=== PATIENT | female | born 1950 | race Caucasian/White ===

== ENCOUNTER 2016-11-25 05:50 | Inpatient (IN) | payer OTHER ==
[2016-11-16 14:07] VITALS: BMI 33.3
[2016-11-25] MEDS ORDERED: PANTOPRAZOLE 40 MG TABLET (FP) PO ONE (06:34)
[2016-11-25] MEDS ORDERED: ROPIVICAINE 0.2%/MORPH PF/KETOROLAC - 51ML DISP.SYRINGE IA ONE ×2 (06:40→07:42)
[2016-11-25] MEDS ORDERED: GABAPENTIN 300 MG CAPSULE (FP) PO ONE (06:40)
[2016-11-25] MEDS ORDERED: TRANEXAMIC ACID 1000 MG/10 ML VIAL IVPUSH ONE (06:40)
[2016-11-25] MEDS ORDERED: CEFAZOLIN 2 GM in DEXTROSE 5%-WATER - 50 ML IVPB ONE (06:40)
[2016-11-25] MEDS ORDERED: oxyCODONE HCL 10 MG SUSTAINED ACTING TABLET PO ONE (06:40)
[2016-11-25] MEDS ORDERED: CELECOXIB 200 MG CAPSULE PO ONE (06:40)
[2016-11-25] MEDS ORDERED: MIDAZOLAM HCL 2 MG/2 ML SINGLE DOSE VIAL ONE (07:17)
[2016-11-25] MEDS ORDERED: BUPIVACAINE HCL/PF 2.5 MG/ML - 30 ML VIAL IJ ONE (07:18)
[2016-11-25] MEDS ORDERED: TRANEXAMIC ACID 1000 MG/10 ML VIAL ONE ×2 (07:42→07:55)
[2016-11-25] MEDS ORDERED: VANCOMYCIN 1,000 MG VIAL (RESTRICTED TO ID ONLY) ONE (07:42)
[2016-11-25] MEDS ORDERED: ceFAZolin SODIUM 1 GM VIAL ONE ×2 (07:42→07:55)
[2016-11-25] MEDS ORDERED: BUPIVACAINE HCL/PF 0.5% (5MG/ML) 10 ML VIAL ONE (07:52)
[2016-11-25] MEDS ORDERED: PROPOFOL 20 ML ONE ×3 (07:54)
[2016-11-25] MEDS ORDERED: ONDANSETRON 4 MG/2 ML VIAL ONE (07:55)
[2016-11-25] MEDS ORDERED: DEXAMETHASONE SOD PHOSPHATE 4 MG/1 ML VIAL ONE (07:55)
[2016-11-25] MEDS ORDERED: SUCCINYLCHOLINE CHLORIDE 200 MG/10 ML VIAL ONE (07:58)
--- NOTE | 2016-11-25 08:10 | HP ---
Admitting History and Physical - Admission Chief Complaint: left knee OA History of Present Illness: 66yo female with longstanding bilateral knee OA, L>R, failed conservative management, here for TKA History Source: Patient, Medical Record Limitations to Obtaining History: No Limitations - Past Medical History Cardiovascular: Yes: HTN, Hyperlipdemia Musculoskeletal: Yes: Osteoarthritis - Past Surgical History Past Surgical History: Yes: Arthrosocopy - Smoking History Smoking history: Never smoked Have you smoked in the past 12 months: No - Alcohol/Substance Use Hx Alcohol Use: Yes (SOCIALLY) Home Medications - Allergies Allergies/Adverse Reactions: Allergies Allergy/AdvReac Type Severity Reaction Status Date / Time shellfish derived Allergy Severe Swelling Verified 11/16/16 13:59 No Known Drug Allergies Allergy Verified 11/16/16 13:59 - Home Medications Home Medications: Ambulatory Orders Amlodipine/Atorvastatin [Amlodipine-Atorvast 5-10 mg] 1 each PO HS 11/17/16 Pitavastatin Calcium [Livalo] 2 mg PO HS 11/17/16 Physical Examination Vital Signs: Vital Signs Temperature 98.3 F 11/25/16 06:33 Pulse Rate 58 L 11/25/16 06:33 Respiratory Rate 18 11/25/16 06:33 Blood Pressure 146/69 11/25/16 06:33 O2 Sat by Pulse Oximetry (%) Constitutional: Yes: Well Nourished, No Distress, Calm Eyes: Yes: WNL, Conjunctiva Clear HENT: Yes: WNL, Atraumatic, Normocephalic Neck: Yes: WNL, Supple Cardiovascular: Yes: WNL, Regular Rate and Rhythm Respiratory: Yes: WNL, Regular Gastrointestinal: Yes: WNL, Soft ...Rectal Exam: Yes: Deferred Musculoskeletal: Yes: Joint Stiffness, Joint Swelling, Muscle Pain Extremities: Yes: WNL Edema: No Peripheral Pulses WNL: Yes Integumentary: Yes: WNL Neurological: Yes: WNL, Alert, Oriented ...Motor Strength: WNL Psychiatric: Yes: WNL, Alert, Oriented Labs: reviewed in chart - OK Imaging - Results X-ray: Image Reviewed Problem List - Problems (1) Osteoarthritis of left knee Code(s): M17.12 - UNILATERAL PRIMARY OSTEOARTHRITIS, LEFT KNEE Qualifiers: Osteoarthritis type: primary Qualified Code(s): M17.12 - Unilateral primary osteoarthritis, left knee Assessment/Plan 66yo female with left knee OA for TKA
[2016-11-25] MEDS ORDERED: ONDANSETRON 4 MG/2 ML VIAL IVPUSH PRN (11:05)
[2016-11-25] MEDS ORDERED: LACTATED RINGERS SOLUTION 1,000 ML IV SCH ×2 (11:15→11:45)
--- NOTE | 2016-11-25 11:40 | OP ---
Operative Note - Note: Operative Date: 11/25/16 Pre-Operative Diagnosis: left knee OA Operation: left TKA Post-Operative Diagnosis: Same as Pre-op Surgeon: John Hare Anesthesia: Spinal Estimated Blood Loss (mls): 100
[2016-11-25] MEDS ORDERED: ONDANSETRON 4 MG/2 ML VIAL IVPB PRN (11:41)
[2016-11-25] MEDS ORDERED: ACETAMINOPHEN 1000 MG/100 ML VIAL (NON FORMULARY) IVPB ONE (11:52)
--- NOTE | 2016-11-25 11:52 | SURG ---
Surgery Home Care Attendant Note Home Care Attendant: Dusty Marcum PA-C Date of Service: 11/25/16 Diagnosis: Left knee osteoarthritis Procedure: Left total knee replacement I was present for the entirety of the operative procedure. For further detail, please refer to operative report. Visit type - Case Type Case Type: Scheduled Admission - New patient This patient is new to me today: Yes Date on this admission: 11/25/16
[2016-11-25] MEDS: traMADol HCL 50 MG TABLET PO SCH ×2 (12:00→18:28)
[2016-11-25] MEDS: KETOROLAC TROMETHAMINE 30 MG/1 ML VIAL IVPUSH SCH ×2 (12:00→18:26)
[2016-11-25] MEDS ORDERED: MAG HYDROX/AL HYDROX/SIMETH 30 ML UNIT-DOSE CUP PO PRN (13:26)
[2016-11-25] MEDS: oxyCODONE HCL 5 MG TABLET PO PRN (15:04)
[2016-11-25] MEDS: ACETAMINOPHEN 325 MG TABLET (FP) PO SCH (18:27)
[2016-11-25] MEDS: CEFAZOLIN 2 GM/D5W 50 ML IVPB SCH (18:27)
[2016-11-25] MEDS ORDERED: PATIENT'S OWN MEDICATION (NON-FORMULARY) (Amlodipine/Atorvastatin [Amlodipine-Atorvast 5-1 PO SCH (22:00)
[2016-11-25] MEDS ORDERED: ATORVASTATIN CA 10 MG TABLET (FP) PO SCH (22:00)
[2016-11-25] MEDS ORDERED: amLODIPine BESYLATE 5 MG TABLET (FP) PO SCH (22:00)
[2016-11-25] MEDS: SENNOSIDES/DOCUSATE COMBO (SENNA PLUS) TABLET (UD) PO SCH (22:01)
[2016-11-25] MEDS: GABAPENTIN 300 MG CAPSULE (FP) PO SCH (22:02)
[2016-11-25] MEDS: oxyCODONE HCL 10 MG SUSTAINED ACTING TABLET PO SCH (22:03)
[2016-11-25] MEDS: CELECOXIB 200 MG CAPSULE PO SCH (22:03)
[2016-11-25] MEDS: ASCORBIC ACID 500 MG TABLET (FP) PO SCH (22:04)
[2016-11-26] MEDS: ACETAMINOPHEN 325 MG TABLET (FP) PO SCH ×4 (00:18→17:39)
[2016-11-26] MEDS: traMADol HCL 50 MG TABLET PO SCH ×4 (00:19→17:39)
[2016-11-26] MEDS: KETOROLAC TROMETHAMINE 30 MG/1 ML VIAL IVPUSH SCH ×2 (00:19→05:49)
[2016-11-26] MEDS: CEFAZOLIN 2 GM/D5W 50 ML IVPB SCH (02:17)
[2016-11-26 08:56] LABS: ANION GAP 7 (8-16); CO2 28 mmol/L (22-28); CREATININE 0.7 mg/dl (0.6-1.3); GLUCOSE,RANDOM 95 mg/dl (74-106)
[2016-11-26 09:05] LABS: MCH 31.5 pg (25.7-33.7); MCHC 33.9 g/dl (32.0-36.0); MEAN CELL VOLUME 92.9 fl (80-96); PLATELET COUNT 258 K/MM3 (134-434); RDW 13.8 % (11.6-15.6)
--- NOTE | 2016-11-26 09:05 | PN ---
Progress Note (short form) - Note Progress Note: 66F POD1 s/p L TKR under spinal anesthetic with adductor canal and selective tibial blocks for post operative pain. Pt is doing well, states that pain is well controlled, reports no anesthetic complications. Sensory and motor function is intact in both lower extremities.
[2016-11-26] MEDS: ASPIRIN 325 MG TABLET PO SCH (10:13)
[2016-11-26] MEDS: GABAPENTIN 300 MG CAPSULE (FP) PO SCH ×2 (10:13→21:22)
[2016-11-26] MEDS: PANTOPRAZOLE 40 MG TABLET (FP) PO SCH (10:14)
[2016-11-26] MEDS: MULTIVITAMINS (DAILY MVI) TABLET (FP) PO SCH (10:14)
[2016-11-26] MEDS: ASCORBIC ACID 500 MG TABLET (FP) PO SCH ×2 (10:14→21:21)
[2016-11-26] MEDS: MAGNESIUM HYDROX 2400MG/30ML ORAL SUSPENSION 30 ML CUP PO PRN ×2 (10:15→15:35)
[2016-11-26] MEDS: SENNOSIDES/DOCUSATE COMBO (SENNA PLUS) TABLET (UD) PO SCH ×2 (10:15→21:20)
[2016-11-26] MEDS: CELECOXIB 200 MG CAPSULE PO SCH ×2 (10:15→21:22)
[2016-11-26] MEDS: oxyCODONE HCL 10 MG SUSTAINED ACTING TABLET PO SCH ×2 (10:16→21:21)
[2016-11-26] MEDS: oxyCODONE HCL 5 MG TABLET PO PRN ×2 (15:31→21:21)
[2016-11-26] MEDS ORDERED: PT OWN MED DRAWER 7, Y5N ONE (21:12)
--- NOTE | 2016-11-26 21:12 | PN ---
Progress Note (short form) - Note Progress Note: Pt seen and examined. Doing well. AVSS Selected Entries 11/26/16 05:41 Temperature 97.6 F Pulse Rate 50 L Respiratory 18 Rate Blood Pressure 113/59 O2 Sat by Pulse 95 Oximetry (%) Oxygen Delivery Room Air Method Laboratory Tests 11/26/16 11/26/16 07:00 07:00 WBC 9.0 Hgb 11.1 Hct 32.9 Plt Count 258 Sodium 136 Potassium 4.4 Chloride 101 Carbon Dioxide 28 Anion Gap 7 L BUN 16 Creatinine 0.7 Random Glucose 95 Calcium 9.0 Gen: NAD, AAO LLE: c/d/i, NVID A/P 66yo female POD#1 s/p L TKA 1. PT/OOB - WBAT LLE 2. D/C tomorrow morning after PT; f/u in office in 10-14 days. Problem List - Problems (1) Osteoarthritis of left knee Code(s): M17.12 - UNILATERAL PRIMARY OSTEOARTHRITIS, LEFT KNEE Qualifiers: Osteoarthritis type: primary Qualified Code(s): M17.12 - Unilateral primary osteoarthritis, left knee
--- NOTE | 2016-11-26 21:19 | DS ---
Physical Examination Vital Signs: Vital Signs Temperature 97.6 F 11/26/16 05:41 Pulse Rate 50 L 11/26/16 05:41 Respiratory Rate 18 11/26/16 05:41 Blood Pressure 113/59 11/26/16 05:41 O2 Sat by Pulse Oximetry (%) 95 11/26/16 05:41 Labs: CBC, BMP 11/26/16 07:00 11/26/16 07:00 Discharge Summary Reason For Visit: LEFT KNEE OSTEOARTHRITIS Current Active Problems Osteoarthritis of left knee (Acute) Procedures: Principal: left TKA Hospital Course: Admitted for elective surgery. Procedure performed without complications. Pt received postoperative antibiotic prophylaxis and DVT ppx. Ambulated with physical therapy. Stable for discharge home with outpatient followup. Condition: Stable - Instructions Diet, Activity, Other Instructions: Dr. Hare - Knee Replacement Instructions Dear Rere, Keep the Aquacel dressing on until removed by Dr. Hare in 10-14 days - it is antibacterial and waterproof and you can shower with it on. Call the office for a follow-up appointment with Dr. Hare in 10-14 days. Take one Aspirin 325mg daily for 6 weeks to prevent blood clots in your legs. Take one Pantoprazole 40mg daily for 6 weeks to protect against heartburn and ulcers. Take Celebrex 200mg twice daily for 30 days to reduce swelling and inflammation. Take a multivitamin, extra vitamin C supplement, and stool softener daily. For pain: *Mild pain (1-3/10): Take 1 Tramadol tablet every 4 hours as needed. Moderate pain (4-6/10): Take 1 Tramadol tablet and 1 Percocet tablet every 4 hours as needed. Severe pain (7-10/10): Take 1 Tramadol tablet and 2 Percocet tablets every 4 hours as needed. Activity: You can put as much weight on the operative leg as you want. Right after you get home, there will be a physical therapist coming to your house to help you walk around and bend/straighten your knee. After your follow-up appointment, you will be sent for more intensive outpatient physical therapy which will include machines and equipment that the home therapist cannot bring to your house. Always use a walker or cane for balance and to prevent falls. Disposition: [facility]/HOME HEALTH CARE - Home Medications Comprehensive Discharge Medication List: Ambulatory Orders Amlodipine/Atorvastatin [Amlodipine-Atorvast 5-10 mg] 1 each PO HS 11/17/16 Pitavastatin Calcium [Livalo] 2 mg PO HS 11/17/16 Ascorbic Acid [Vitamin C -] 500 mg PO BID tablet 11/26/16 Aspirin [ASA -] 325 mg PO DAILY@0800 tablet 11/26/16 Celecoxib [CeleBREX -] 200 mg PO BID #60 tab 11/26/16 Multivitamins [Multivit ([facility] Formulary)] 1 tab PO DAILY tab 11/26/16 Oxycodone HCl/Acetaminophen [Percocet 5-325 mg Tablet] 1 - 2 tab PO Q4H PRN #60 tablet MDD 8 11/26/16 Pantoprazole Sodium [Protonix -] 40 mg PO DAILY #40 tab 11/26/16 Sennosides/Docusate Sodium [Pericolace -] 2 tablet PO BID tablet 11/26/16 Tramadol HCl [Ultram -] 50 mg PO Q4H PRN #90 tablet MDD 6 11/26/16
[2016-11-26] MEDS ORDERED: AMLODIPINE PO SCH (22:00)
[2016-11-26] MEDS ORDERED: PATIENT'S OWN MEDICATION (NON-FORMULARY) (Pitavastatin Calcium [Livalo] 2 MG) PO SCH (22:00)
[2016-11-27] MEDS: traMADol HCL 50 MG TABLET PO SCH ×3 (03:20→11:38)
[2016-11-27] MEDS: ACETAMINOPHEN 325 MG TABLET (FP) PO SCH ×3 (03:20→11:38)
[2016-11-27 07:23] VITALS: BP 125/58; PULSE 55; TEMP 97.9
[2016-11-27 07:48] LABS: MCH 31.1 pg (25.7-33.7); MCHC 33.4 g/dl (32.0-36.0); MEAN CELL VOLUME 93.2 fl (80-96); PLATELET COUNT 199 K/MM3 (134-434); RDW 13.9 % (11.6-15.6); WHITE BLOOD COUNT 7.2 K/mm3 (4.0-10.8)
[2016-11-27] MEDS: ASPIRIN 325 MG TABLET PO SCH (08:21)
[2016-11-27 08:33] LABS: ANION GAP 4 (8-16); CALCIUM 8.2 mg/dl (8.4-10.2); CO2 30 mmol/L (22-28); CREATININE 0.6 mg/dl (0.6-1.3); GLUCOSE,RANDOM 79 mg/dl (74-106)
[2016-11-27] MEDS: MULTIVITAMINS (DAILY MVI) TABLET (FP) PO SCH (09:47)
[2016-11-27] MEDS: PANTOPRAZOLE 40 MG TABLET (FP) PO SCH (09:47)
[2016-11-27] MEDS: CELECOXIB 200 MG CAPSULE PO SCH (09:47)
[2016-11-27] MEDS: oxyCODONE HCL 10 MG SUSTAINED ACTING TABLET PO SCH (09:48)
[2016-11-27] MEDS: GABAPENTIN 300 MG CAPSULE (FP) PO SCH (09:48)
[2016-11-27] MEDS: SENNOSIDES/DOCUSATE COMBO (SENNA PLUS) TABLET (UD) PO SCH (09:48)
[2016-11-27] MEDS: ASCORBIC ACID 500 MG TABLET (FP) PO SCH (09:49)
[2016-11-27] MEDS: oxyCODONE HCL 5 MG TABLET PO PRN (09:51)
--- NOTE | 2016-12-01 16:04 | PATH ---
Surgical Pathology Report Patient Name: KEVON RODRIGEZ Med. Rec. #: [id number] /Age/Gender: 1950 (Age: 66) / F Account: [id number] Location: [facility] MED-SURG Taken: 11/26/2016 Received: 11/26/2016 Reported: 12/01/2016 Physicians: John Hare M.D. Specimen(s) Received BONE LEFT KNEE Clinical History Left knee osteoarthritis Final Diagnosis BONE, LEFT KNEE, TOTAL KNEE REPLACEMENT: DEGENERATIVE JOINT DISEASE. Electronically Signed Zuleima Miranda M.D. Gross Description Received in formalin labeled "bone left knee," is an 11.5 x 7.0 x 1.8 cm aggregate of multiple ceron, irregular portions of bone and soft tissue. The tibial plateau measures 7.5 x 4.5 x 1.3 cm. There are multiple areas of eburnation present, measuring up to 2.2 cm in greatest dimension. The remaining articular surfaces are ceron-yellow and diffusely granular. The underlying trabecular bone is yellow and hard. Crusher Operator sections are submitted in one cassette, following decalcification. 11/26/201611/26/2016
== END 2016-11-27 13:36 | disposition home health service (06) | DRG 470 ==
LOC: FM/S 05:50
PROVIDERS: ADMIT Student in an Organized Health Care Education/Training Program; ATTEND Student in an Organized Health Care Education/Training Program
PROC: 0SRD0JA Replacement of Left Knee Joint with Synthetic Substitute, Uncemented, Open Approach (ICD-10-PCS; principal; 2016-11-25 08:50)
DX: M17.12 Unilateral primary osteoarthritis, left knee (principal); I10 Essential (primary) hypertension; E78.5 Hyperlipidemia, unspecified
CPT/HCPCS: 36415; 73560-TC-LT; 80048; 85027; 88304-TC; 88311-TC; 94010; 94760; 97010-GP; 97116-GP; 97161-GP

== ENCOUNTER 2017-05-26 05:46 | Inpatient (IN) | payer OTHER ==
[2017-05-19 12:56] VITALS: BMI 32.7
[~2017-05-26 05:46] MED LIST: KETOROLAC TROMETHAMINE 30 MG/1 ML VIAL IVPUSH SCH
[2017-05-26] MEDS ORDERED: SUCCINYLCHOLINE CHLORIDE 200 MG/10 ML VIAL ONE (06:48)
[2017-05-26] MEDS ORDERED: ePHEDrine SULFATE 50 MG/1 ML AMPULE ONE (06:48)
[2017-05-26] MEDS ORDERED: PROPOFOL 20 ML ONE ×5 (06:48→12:53)
[2017-05-26] MEDS ORDERED: ceFAZolin SODIUM 1 GM VIAL ONE ×6 (06:49→16:24)
[2017-05-26] MEDS ORDERED: TRANEXAMIC ACID 1000 MG/10 ML VIAL ONE ×4 (06:49→11:42)
[2017-05-26] MEDS ORDERED: BUPIVACAINE HCL/PF 0.5% (5MG/ML) 10 ML VIAL ONE (06:52)
[2017-05-26] MEDS ORDERED: DEXAMETHASONE SOD PHOSPHATE/PF 10 MG/ML SDV ONE (07:00)
[2017-05-26] MEDS ORDERED: ROPIVACAINE HCL 0.5% 30ML VIAL ONE (07:00)
[2017-05-26] MEDS ORDERED: BUPIVACAINE LIPOSOME/PF (EXPAREL) 266 MG/20 ML VIAL ONE (07:00)
[2017-05-26] MEDS ORDERED: MIDAZOLAM HCL 2 MG/2 ML SINGLE DOSE VIAL ONE (07:00)
[2017-05-26] MEDS ORDERED: SODIUM CHLORIDE 0.9% P/F 10 ML VIAL IJ ONE (07:00)
[2017-05-26] MEDS ORDERED: TRANEXAMIC ACID 1000 MG/10 ML VIAL IVPUSH ONE (07:01)
[2017-05-26] MEDS ORDERED: oxyCODONE HCL 10 MG SUSTAINED ACTING TABLET PO ONE (07:01)
[2017-05-26] MEDS ORDERED: GABAPENTIN 300 MG CAPSULE (FP) PO ONE (07:01)
[2017-05-26] MEDS ORDERED: CELECOXIB 200 MG CAPSULE PO ONE (07:01)
[2017-05-26] MEDS ORDERED: CEFAZOLIN 2 GM/D5W 2 GM/50 ML ML IVPB ONE (07:01)
[2017-05-26] MEDS ORDERED: ROPIVICAINE 0.2%/MORPH PF/KETOROLAC - 51ML DISP.SYRINGE IA ONE ×7 (07:01→14:45)
[2017-05-26] MEDS ORDERED: PANTOPRAZOLE 40 MG TABLET (FP) PO ONE (07:04)
[2017-05-26] MEDS ORDERED: CELECOXIB 200 MG CAPSULE ONE (07:09)
[2017-05-26] MEDS ORDERED: oxyCODONE HCL 10 MG SUSTAINED ACTING TABLET ONE (07:09)
[2017-05-26] MEDS ORDERED: GABAPENTIN 300 MG CAPSULE (FP) ONE (07:09)
[2017-05-26] MEDS ORDERED: PANTOPRAZOLE 40 MG TABLET (FP) ONE (07:15)
[2017-05-26] MEDS ORDERED: THROMBIN (BOVINE) 5,000 UNIT VIAL TP ONE (07:16)
[2017-05-26] MEDS ORDERED: VANCOMYCIN 1,000 MG VIAL (RESTRICTED TO ID ONLY) ONE ×2 (07:16→11:42)
[2017-05-26] MEDS ORDERED: GELATIN, ABSORBABLE 100 EACH SPONGE TP ONE (07:17)
--- NOTE | 2017-05-26 08:01 | HP ---
Admitting History and Physical - Admission Chief Complaint: Right knee osteoarthritis x years, left total knee arthroplasty with patellar dislocation History of Present Illness: 66 year old female presenting in regard to bilateral knees. Patient has a longstanding history of right knee osteoarthritis. Patient complaining of pain, limited ROM, difficulty ambulating and difficulty with ADLs. Patient has failed conservative treatment including PO medicaton, activity modifications, injections and exercise program. Patient is status post a left total knee arthroplasty in November 2016. Recently, her patella has been dislocating. She has failed conservative treatment with limiting range of motion and bracing. At this point, patient would like to proceed with a right total knee arthroplasty and revision of left total knee arthroplasty. History Source: Patient - Past Medical History [employer]IN[employer]: Yes: Parkinson's Cardiovascular: Yes: HTN, Hyperlipdemia Musculoskeletal: Yes: Osteoarthritis - Past Surgical History Past Surgical History: Yes: Arthrosocopy Additional Past Surgical History: Left total knee arthroplasty - Smoking History Smoking history: Never smoked Have you smoked in the past 12 months: No - Alcohol/Substance Use Hx Alcohol Use: Yes (SOCIALLY) Home Medications - Allergies Allergies/Adverse Reactions: Allergies Allergy/AdvReac Type Severity Reaction Status Date / Time adhesive Allergy Severe Rash Verified 05/26/17 06:17 shellfish derived Allergy Severe Swelling Verified 05/19/17 12:44 No Known Drug Allergies Allergy Verified 05/19/17 12:44 - Home Medications Home Medications: Ambulatory Orders Pitavastatin Calcium [Livalo] 2 mg PO HS 11/17/16 Amlodipine Besylate/Benazepril [Lotrel 5-10 mg Capsule] 1 each PO HS 05/19/17 Pramipexole Di-HCl [Mirapex] 0.25 mg PO BID 05/19/17 Review of Systems - Review of Systems Musculoskeletal: reports: Crepitus (right knee), Decreased ROM (right knee), Joint Swelling (bilateral knees), Other (Patella dislocation of left knee) Physical Examination Vital Signs: Vital Signs Temperature 98.9 F 05/26/17 06:54 Pulse Rate 72 05/26/17 06:54 Respiratory Rate 18 05/26/17 06:54 Blood Pressure 122/78 05/26/17 06:54 O2 Sat by Pulse Oximetry (%) Constitutional: Yes: Well Nourished, No Distress Eyes: Yes: Conjunctiva Clear HENT: Yes: Atraumatic, Normocephalic Neck: Yes: Supple Cardiovascular: Yes: Regular Rate and Rhythm Respiratory: Yes: Regular Gastrointestinal: Yes: Soft ...Rectal Exam: Yes: Deferred Musculoskeletal: Yes: Joint Stiffness (right knee), Joint Swelling (bilateral knees), Other (Well healed incision anteriorly over left knee. 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 Patient has a longstanding history of right knee osteoarthritis. Patient complaining of pain, limited ROM, difficulty ambulating and difficulty with ADLs. Patient has failed conservative treatment including PO medication, activity modifications, injections and exercise program. Patient is status post a left total knee arthroplasty in November 2016. Recently, her patella has been dislocating. She has failed conservative treatment with limiting range of motion and bracing. Pros, cons, risks, benefits and alternatives of a right total knee arthroplasty and revision left total knee arthroplasty with possible revision of arthrotomy, possible lateral release and possible revision of femoral component.
[2017-05-26] MEDS ORDERED: LIDOCAINE HCL/PF 2% SDV 5ML VIAL ONE (08:27)
[2017-05-26] MEDS ORDERED: VANCOMYCIN 1,000 MG VIAL (RESTRICTED TO ID ONLY) IVPB ONE ×3 (09:20→14:11)
[2017-05-26] MEDS ORDERED: TRANEXAMIC ACID 1000 MG/10 ML VIAL IVPB ONE ×3 (09:22→14:09)
[2017-05-26] MEDS ORDERED: ACETAMINOPHEN INJECTION 100 ML IVPB ONE (14:40)
[2017-05-26] MEDS ORDERED: oxyCODONE HCL 5 MG TABLET PO PRN (15:15)
[2017-05-26] MEDS ORDERED: ACETAMINOPHEN 1000 MG/100 ML VIAL (NON FORMULARY) IVPB ONE (15:30)
[2017-05-26 15:41] LABS: SYNOVIAL FLUID RBC 198085 /mm3; SYNOVIAL FLUID SOURCE RIGHT KNEE
[2017-05-26 15:48] LABS: SYNOVIAL FLUID LYMPHOCYTES 12 %; SYNOVIAL FLUID MACROPHAGES 1 %; SYNOVIAL FLUID MONOCYTES 4 %; SYNOVIAL FLUID NEUTROPHILS 83 %
--- NOTE | 2017-05-26 15:59 | OP ---
Operative Note - Note: Operative Date: 05/26/17 Pre-Operative Diagnosis: Right knee OA, left knee TKA patellar instability Operation: Right TKA, left TKA revision Post-Operative Diagnosis: Same as Pre-op Surgeon: John Hare Plumber Assistant: Trudy Clifford Anesthesia: Spinal Estimated Blood Loss (mls): 300
[2017-05-26] MEDS ORDERED: MAGNESIUM HYDROX 2400MG/30ML ORAL SUSPENSION 30 ML CUP PO PRN (16:03)
[2017-05-26] MEDS ORDERED: MAG HYDROX/AL HYDROX/SIMETH 30 ML UNIT-DOSE CUP PO PRN (16:03)
[2017-05-26] MEDS ORDERED: ONDANSETRON 4 MG/2 ML VIAL IVPUSH PRN (16:03)
[2017-05-26] MEDS: CEFAZOLIN 2 GM/D5W 2 GM/50 ML ML IVPB SCH (16:10)
[2017-05-26] MEDS ORDERED: LACTATED RINGERS SOLUTION 1,000 ML IV SCH (16:15)
[2017-05-26] MEDS ORDERED: traMADol HCL 50 MG TABLET ONE (16:24)
[2017-05-26] MEDS ORDERED: ceFAZolin SODIUM 1 GM VIAL IVPB ONE (16:28)
[2017-05-26] MEDS ORDERED: traMADol HCL 50 MG TABLET PO ONE (16:31)
[2017-05-26] MEDS ORDERED: CEFAZOLIN 2 GM/D5W 2 GM/50 ML ML IVPB SCH (18:00)
[2017-05-26] MEDS ORDERED: traMADol HCL 50 MG TABLET PO SCH (18:00)
[2017-05-26] MEDS: oxyCODONE HCL 5 MG TABLET PO PRN (18:11)
[2017-05-26] MEDS: traMADol HCL 50 MG TABLET PO SCH (18:12)
[2017-05-26] MEDS ORDERED: DEXAMETHASONE SOD PHOSPHATE 10 MG/1 ML VIAL IVPB ONE (20:00)
[2017-05-26] MEDS ORDERED: VANCOMYCIN 1,500 MG in SODIUM CHLORIDE 500 ML IVPB ONE (21:00)
[2017-05-26] MEDS ORDERED: KETOROLAC TROMETHAMINE 30 MG/1 ML VIAL IVPUSH SCH (21:00)
[2017-05-26] MEDS ORDERED: GABAPENTIN 300 MG CAPSULE (FP) PO SCH (22:00)
[2017-05-26] MEDS ORDERED: PATIENT'S OWN MEDICATION (NON-FORMULARY) (Amlodipine Besylate/Benazepril [Lotrel 5-10 Mg C PO SCH (22:00)
[2017-05-26] MEDS: CELECOXIB 200 MG CAPSULE PO SCH (22:14)
[2017-05-26] MEDS: ATORVASTATIN CA 10 MG TABLET (FP) PO SCH (22:14)
[2017-05-26] MEDS: PRAMIPEXOLE DIHYDROCHLORIDE 0.25 MG TABLET PO SCH (22:15)
[2017-05-26] MEDS: SENNOSIDES/DOCUSATE COMBO (SENNA PLUS) TABLET (UD) PO SCH (22:15)
[2017-05-26] MEDS: ASCORBIC ACID 500 MG TABLET (FP) PO SCH (22:15)
[2017-05-26] MEDS: GABAPENTIN 300 MG CAPSULE (FP) PO SCH (22:15)
[2017-05-26] MEDS: oxyCODONE HCL 10 MG SUSTAINED ACTING TABLET PO SCH (22:17)
[2017-05-27] MEDS: traMADol HCL 50 MG TABLET PO SCH ×5 (00:06→23:48)
[2017-05-27] MEDS: CEFAZOLIN 2 GM/D5W 2 GM/50 ML ML IVPB SCH ×3 (01:45→18:06)
[2017-05-27] MEDS: oxyCODONE HCL 5 MG TABLET PO PRN ×2 (08:40→15:05)
[2017-05-27 08:43] LABS: HEMATOCRIT 27.8 % (32.4-45.2); HEMOGLOBIN 9.1 GM/dl (10.7-15.3); MCH 30.8 pg (25.7-33.7); MCHC 32.9 g/dl (32.0-36.0); MEAN CELL VOLUME 93.6 fl (80-96); MEAN PLT VOLUME 10.7 fl (7.5-11.1); PLATELET COUNT 202 K/MM3 (134-434); RBC 2.97 M/mm3 (3.60-5.2); RDW 14.2 % (11.6-15.6); WHITE BLOOD COUNT 9.4 K/mm3 (4.0-10.8)
[2017-05-27 08:52] LABS: ANION GAP 4 (8-16); BLOOD UREA NITROGEN 17 mg/dl (7-18); CALCIUM 8.3 mg/dl (8.4-10.2); CHLORIDE 104 mmol/L (98-107); CO2 26 mmol/L (22-28); CREATININE 0.8 mg/dl (0.6-1.3); GLUCOSE,RANDOM 138 mg/dl (74-106); SODIUM 134 mmol/L (136-145)
--- NOTE | 2017-05-27 09:42 | PN ---
Progress Note, Physician Chief Complaint: s/p R revision knee arthroplasty, Left total knee arthroplasty under spinal anesthesia and peripheral nerve blocks. History of Present Illness: post op day one - Current Medication List Current Medications: Active Medications Al Hydroxide/Mg Hydroxide (Mylanta Oral Suspension -) 30 ml PO Q4H PRN PRN Reason: DYSPEPSIA Amlodipine Besylate (Norvasc -) 5 mg PO DAILY [facility] Apixaban (Eliquis -) 2.5 mg PO BID [facility] Ascorbic Acid (Vitamin C -) 500 mg PO BID [facility] Last Admin: 05/26/17 22:15 Dose: 500 mg Atorvastatin Calcium (Lipitor -) 10 mg PO HS [facility] Last Admin: 05/26/17 22:14 Dose: 10 mg Celecoxib (Celebrex -) 200 mg PO BID [facility] Last Admin: 05/26/17 22:14 Dose: 200 mg Gabapentin (Neurontin -) 300 mg PO BID [facility] Last Admin: 05/26/17 22:15 Dose: 300 mg Lactated Ringer's (Lactated Ringers Solution) 1,000 mls @ 125 mls/hr IV ASDIR [facility] Cefazolin Sodium/Dextrose (Ancef 2 Gm Premixed Ivpb -) 2 gm in 50 mls @ 100 mls /hr IVPB Q8H-IV [facility] Last Admin: 05/27/17 01:45 Dose: 100 mls/hr Lisinopril (Prinivil) 10 mg PO DAILY [facility] Magnesium Hydroxide (Milk Of Magnesia -) 30 ml PO PRN PRN PRN Reason: CONSTIPATION Multivitamins/Minerals/Vitamin C (Tab-A-Vit -) 1 tab PO DAILY [facility] Ondansetron HCl (Zofran Injection) 4 mg IVPUSH Q6H PRN PRN Reason: NAUSEA Oxycodone HCl (Roxicodone -) 5 mg PO Q3H PRN PRN Reason: PAIN LEVEL 1-5 Stop: 05/27/17 15:14 Oxycodone HCl (Roxicodone -) 10 mg PO Q3H PRN PRN Reason: PAIN LEVEL 6-10 Stop: 05/27/17 15:14 Last Admin: 05/26/17 18:11 Dose: 10 mg Oxycodone HCl (Oxycontin -) 10 mg PO BID [facility] Stop: 05/27/17 21:59 Last Admin: 05/26/17 22:17 Dose: 10 mg Pantoprazole Sodium (Protonix -) 40 mg PO DAILY [facility] Pramipexole Dihydrochloride (Mirapex -) 0.25 mg PO BID [facility] Last Admin: 05/26/17 22:15 Dose: 0.25 mg Senna/Docusate Sodium (Pericolace -) 1 tablet PO BID [facility] Last Admin: 05/26/17 22:15 Dose: 1 tablet Tramadol HCl (Ultram -) 50 mg PO Q6HPO [facility] Last Admin: 05/27/17 06:25 Dose: 50 mg - Objective Vital Signs: Vital Signs Temperature 98.2 F 05/27/17 05:00 Pulse Rate 58 L 05/27/17 05:00 Respiratory Rate 18 05/27/17 05:00 Blood Pressure 112/54 05/27/17 05:00 O2 Sat by Pulse Oximetry (%) 96 05/27/17 06:03 Constitutional: Yes: Well Nourished Cardiovascular: Yes: WNL Respiratory: Yes: WNL Gastrointestinal: Yes: WNL Neurological: Yes: WNL Labs: CBC, BMP 05/27/17 07:35 05/27/17 07:35 Assessment/Plan No adverse effect from anesthetic, no nausea or vomiting, pain controlled, no other intervention from the dept of anesthesia at this time.
[2017-05-27] MEDS: PANTOPRAZOLE 40 MG TABLET (FP) PO SCH (10:31)
[2017-05-27] MEDS: APIXABAN 2.5 MG TABLET PO SCH ×2 (10:31→21:19)
[2017-05-27] MEDS: amLODIPine BESYLATE 5 MG TABLET (FP) PO SCH ×2 (10:32→11:04)
[2017-05-27] MEDS: PRAMIPEXOLE DIHYDROCHLORIDE 0.25 MG TABLET PO SCH ×2 (10:32→21:19)
[2017-05-27] MEDS: ASCORBIC ACID 500 MG TABLET (FP) PO SCH ×2 (10:32→21:19)
[2017-05-27] MEDS: SENNOSIDES/DOCUSATE COMBO (SENNA PLUS) TABLET (UD) PO SCH ×2 (10:32→21:19)
[2017-05-27] MEDS: CELECOXIB 200 MG CAPSULE PO SCH ×2 (10:32→21:21)
[2017-05-27] MEDS: LISINOPRIL 10 MG TABLET (FP) PO SCH ×2 (10:32→11:04)
[2017-05-27] MEDS: MULTIVITAMINS (DAILY MVI) TABLET (FP) PO SCH (10:32)
[2017-05-27] MEDS: GABAPENTIN 300 MG CAPSULE (FP) PO SCH ×2 (10:32→21:21)
[2017-05-27] MEDS: oxyCODONE HCL 10 MG SUSTAINED ACTING TABLET PO SCH (10:56)
[2017-05-27] MEDS: LACTATED RINGERS SOLUTION 1,000 ML IV SCH (15:25)
[2017-05-27] MEDS: ATORVASTATIN CA 10 MG TABLET (FP) PO SCH (21:19)
[2017-05-28] MEDS: CEFAZOLIN 2 GM/D5W 2 GM/50 ML ML IVPB SCH ×3 (01:14→17:54)
[2017-05-28] MEDS: traMADol HCL 50 MG TABLET PO SCH ×3 (05:18→17:47)
[2017-05-28 07:45] LABS: HEMATOCRIT 24.7 % (32.4-45.2); HEMOGLOBIN 8.2 GM/dl (10.7-15.3); MCH 30.8 pg (25.7-33.7); MEAN CELL VOLUME 93.2 fl (80-96); PLATELET COUNT 187 K/MM3 (134-434); RBC 2.65 M/mm3 (3.60-5.2); RDW 14.1 % (11.6-15.6)
[2017-05-28 08:21] LABS: ANION GAP 6 (8-16); BLOOD UREA NITROGEN 17 mg/dl (7-18); CALCIUM 8.3 mg/dl (8.4-10.2); CHLORIDE 102 mmol/L (98-107); CO2 28 mmol/L (22-28); CREATININE 0.7 mg/dl (0.6-1.3); GLUCOSE,RANDOM 92 mg/dl (74-106); POTASSIUM 4.1 mmol/L (3.5-5.1); SODIUM 136 mmol/L (136-145)
[2017-05-28] MEDS: APIXABAN 2.5 MG TABLET PO SCH ×2 (09:56→21:14)
[2017-05-28] MEDS: CELECOXIB 200 MG CAPSULE PO SCH ×2 (09:56→21:14)
[2017-05-28] MEDS: amLODIPine BESYLATE 5 MG TABLET (FP) PO SCH (09:57)
[2017-05-28] MEDS: GABAPENTIN 300 MG CAPSULE (FP) PO SCH ×2 (09:58→21:14)
[2017-05-28] MEDS: PANTOPRAZOLE 40 MG TABLET (FP) PO SCH (09:58)
[2017-05-28] MEDS: MULTIVITAMINS (DAILY MVI) TABLET (FP) PO SCH (09:58)
[2017-05-28] MEDS: SENNOSIDES/DOCUSATE COMBO (SENNA PLUS) TABLET (UD) PO SCH ×2 (09:58→21:14)
[2017-05-28] MEDS: LISINOPRIL 10 MG TABLET (FP) PO SCH (09:58)
[2017-05-28] MEDS: PRAMIPEXOLE DIHYDROCHLORIDE 0.25 MG TABLET PO SCH ×2 (09:59→21:14)
[2017-05-28] MEDS: ASCORBIC ACID 500 MG TABLET (FP) PO SCH ×2 (09:59→21:14)
[2017-05-28] MEDS: LACTATED RINGERS SOLUTION 1,000 ML IV SCH (15:47)
[2017-05-28] MEDS ORDERED: oxyCODONE HCL 5 MG TABLET PO PRN (19:37)
[2017-05-28] MEDS: oxyCODONE HCL 5 MG TABLET PO PRN (19:48)
[2017-05-28] MEDS: ATORVASTATIN CA 10 MG TABLET (FP) PO SCH (21:15)
[2017-05-28] MEDS: oxyCODONE HCL 10 MG SUSTAINED ACTING TABLET PO SCH (21:59)
--- NOTE | 2017-05-28 23:35 | PN ---
Progress Note (short form) - Note Progress Note: This note is for Tuesday05/27/17 Pt seen and examined. Doing well. Pain well controlled. AVSS Selected Entries 05/27/17 09:00 Temperature 98.2 F Pulse Rate 61 Respiratory 18 Rate Respiratory Non-Labored Effort Blood Pressure 112/46 O2 Sat by Pulse 96 Oximetry (%) Oxygen Delivery Room Air Method Laboratory Tests 05/27/17 05/27/17 07:35 07:35 WBC 9.4 D Hgb 9.1 L Hct 27.8 L Plt Count 202 Sodium 134 L Potassium 4.0 Chloride 104 Carbon Dioxide 26 Anion Gap 4 L BUN 17 Creatinine 0.8 D Random Glucose 138 H D Calcium 8.3 L Gen: NAD B/L LE: c/d/i, NVID A/P 66yo female POD#1 s/p R TKA, L TKA revision 1. PT/OOB - WBAT 2. D/C planning to rehab Tuesday
[2017-05-29] MEDS: traMADol HCL 50 MG TABLET PO SCH ×2 (00:10→05:25)
[2017-05-29] MEDS: CEFAZOLIN 2 GM/D5W 2 GM/50 ML ML IVPB SCH ×2 (02:49→09:34)
[2017-05-29 08:49] LABS: HEMATOCRIT 22.1 % (32.4-45.2); HEMOGLOBIN 7.5 GM/dl (10.7-15.3); MCH 31.9 pg (25.7-33.7); MEAN CELL VOLUME 93.8 fl (80-96); MEAN PLT VOLUME 10.5 fl (7.5-11.1); PLATELET COUNT 165 K/MM3 (134-434); RBC 2.36 M/mm3 (3.60-5.2); RDW 13.9 % (11.6-15.6); WHITE BLOOD COUNT 7.1 K/mm3 (4.0-10.8)
[2017-05-29 08:51] LABS: ANION GAP 5 (8-16); BLOOD UREA NITROGEN 13 mg/dl (7-18); CHLORIDE 105 mmol/L (98-107); CO2 29 mmol/L (22-28); CREATININE 0.5 mg/dl (0.6-1.3); GLUCOSE,RANDOM 82 mg/dl (74-106); POTASSIUM 3.9 mmol/L (3.5-5.1); SODIUM 139 mmol/L (136-145)
[2017-05-29] MEDS: CELECOXIB 200 MG CAPSULE PO SCH (09:31)
[2017-05-29] MEDS: MULTIVITAMINS (DAILY MVI) TABLET (FP) PO SCH (09:31)
[2017-05-29] MEDS: GABAPENTIN 300 MG CAPSULE (FP) PO SCH (09:31)
[2017-05-29] MEDS: APIXABAN 2.5 MG TABLET PO SCH (09:32)
[2017-05-29] MEDS: ASCORBIC ACID 500 MG TABLET (FP) PO SCH (09:32)
[2017-05-29] MEDS: PANTOPRAZOLE 40 MG TABLET (FP) PO SCH (09:32)
[2017-05-29] MEDS: oxyCODONE HCL 10 MG SUSTAINED ACTING TABLET PO SCH (09:33)
[2017-05-29] MEDS: amLODIPine BESYLATE 5 MG TABLET (FP) PO SCH (09:33)
[2017-05-29] MEDS: SENNOSIDES/DOCUSATE COMBO (SENNA PLUS) TABLET (UD) PO SCH (09:34)
[2017-05-29] MEDS: LISINOPRIL 10 MG TABLET (FP) PO SCH (09:34)
[2017-05-29] MEDS: PRAMIPEXOLE DIHYDROCHLORIDE 0.25 MG TABLET PO SCH (09:37)
--- NOTE | 2017-05-29 10:41 | PN ---
Progress Note (short form) - Note Progress Note: Pt seen and examined. Doing well. Pain well controlled. Ambulated with PT several times. Accepted to Acute Rehab at [facility] - for transfer today Afebrile Selected Entries 05/27/17 09:00 Temperature 98.2 F Pulse Rate 61 Respiratory 18 Rate Respiratory Non-Labored Effort Blood Pressure 112/46 O2 Sat by Pulse 96 Oximetry (%) Oxygen Delivery Room Air Method Laboratory Tests 05/27/17 05/27/17 07:35 07:35 WBC 9.4 D Hgb 9.1 L Hct 27.8 L Plt Count 202 Sodium 134 L Potassium 4.0 Chloride 104 Carbon Dioxide 26 Anion Gap 4 L BUN 17 Creatinine 0.8 D Random Glucose 138 H D Calcium 8.3 L Gen: NAD B/L LE: c/d/i, NVID A/P 66yo female POD#3 s/p R TKA, L TKA revision 1. PT/OOB - WBAT 2. D/C rehab today; f/u in office in 14 days. Call for appt. [phone] 3. Eliquis 2.5mg PO BID x 35 days for DVT ppx 4. Cephalexin 500mg PO TID x 14 days for wound infection ppx 5. Dressing changes with TELFA and PAPER TAPE ONLY (pt is allergic to other adhesives) as needed if there is drainage.
[2017-05-29] MEDS ORDERED: CEPHALEXIN MONOHYDRATE 500 MG CAPSULE (UD) PO SCH (10:42)
[2017-05-29 11:01] VITALS: BP 115/54; PULSE 78; TEMP 98.1
[2017-05-29] MEDS ORDERED: FLU VACCINE QUAD 60 MCG/0.5 ML (MDV 17-18) IM ONE (11:01)
--- NOTE | 2017-05-29 11:01 | DS ---
Physical Examination Vital Signs: Vital Signs Temperature 97.6 F 05/29/17 06:00 Pulse Rate 60 05/29/17 06:00 Respiratory Rate 18 05/29/17 06:00 Blood Pressure 124/57 05/29/17 06:00 O2 Sat by Pulse Oximetry (%) 96 05/29/17 06:00 Labs: CBC, BMP 05/29/17 08:00 05/29/17 08:00 Discharge Summary Reason For Visit: RIGHT KNEE OSTEOARTHRITIS Current Active Problems Instability of prosthetic knee (Acute) Osteoarthritis of left knee (Acute) Procedures: Principal: Right TKA, left knee replacement revision Hospital Course: Admitted for elective surgery. Procedure performed without complications. Pt received postoperative antibiotic prophylaxis and DVT ppx. Ambulated with physical therapy. Stable for discharge to ACUTE REHAB with outpatient followup. Condition: Stable - Instructions Diet, Activity, Other Instructions: Dr. Hare - Knee Replacement Instructions Dressing changes as needed with TELFA, PAPER TAPE, and [place] WRAP. Pt is allergic to some other adhesives, but has not had a reaction to paper tape. Call the office for a follow-up appointment with Dr. Hare in 14 days. Take ELIQUIS 2.5mg twice daily for 35 days to prevent blood clots in your legs. Take one Pantoprazole 40mg daily for 6 weeks to protect against heartburn and ulcers. Take a multivitamin, stool softener, extra Iron supplement, and extra vitamin C supplement daily. Take Cephalexin (antibiotic) 3x/day for 2 weeks to prevent skin infection while the incisions heal. For pain: *Mild pain (1-3/10): Take 1 Tramadol tablet every 4 hours as needed. Moderate pain (4-6/10): Take 1 Tramadol tablet and 1 Percocet tablet every 4 hours as needed. Severe pain (7-10/10): Take 1 Tramadol tablet and 2 Percocet tablets every 4 hours as needed. Activity: You can put as much weight on the operative leg as you want. After your follow-up appointment, you will be sent for outpatient physical therapy. Always use a walker or cane for balance and to prevent falls. CALL ME DIRECTLY IF THERE ARE ANY QUESTIONS [phone] cell Disposition: [facility] - Home Medications Comprehensive Discharge Medication List: Ambulatory Orders Pitavastatin Calcium [Livalo] 2 mg PO HS 11/17/16 Amlodipine Besylate/Benazepril [Lotrel 5-10 mg Capsule] 1 each PO HS 05/19/17 Pramipexole Di-HCl [Mirapex] 0.25 mg PO BID 05/19/17 Apixaban [Eliquis -] 2.5 mg PO BID #70 tablet 05/29/17 Ascorbic Acid [Vitamin C -] 500 mg PO BID tablet 05/29/17 Cephalexin Monohydrate [Keflex -] 500 mg PO TID #42 capsule 05/29/17 Ferrous Sulfate [Feosol] 325 mg PO TIDCM ud 05/29/17 Mag Hydrox/Al Hydrox/Simeth [Mylanta Oral Suspension -] 30 ml PO Q4H PRN cup Magnesium Hydrox 2400MG/30Ml [Milk of Magnesia -] 30 ml PO PRN PRN cup Multivitamins [Multivit ([facility] Formulary)] 1 tab PO DAILY tab 05/29/17 Ondansetron Injection [Zofran Injection] 4 mg IVPUSH Q6H PRN vial 05/29/17 Oxycodone HCl/Acetaminophen [Percocet 5-325 mg Tablet] 1 - 2 tab PO Q4H PRN #60 tablet MDD 8 05/29/17 Pantoprazole Sodium [Protonix -] 40 mg PO DAILY #40 tablet.ec 05/29/17 Sennosides/Docusate Sodium [Pericolace -] 1 tablet PO BID tablet 05/29/17 Tramadol HCl [Ultram -] 50 mg PO Q4H PRN #90 tablet MDD 6 05/29/17
[2017-05-29] MEDS ORDERED: REFRIGERATED ANITBIOTICS ONE (11:13)
[2017-05-29] MEDS: oxyCODONE HCL 5 MG TABLET PO PRN (11:34)
[2017-05-29] MEDS ORDERED: FERROUS SO4 325 MG TABLET (FP) PO SCH (12:00)
--- NOTE | 2017-05-31 12:22 | PATH ---
Surgical Pathology Report Patient Name: KEVON RODRIGEZ Med. Rec. #: [id number] /Age/Gender: 1950 (Age: 66) / F Account: [id number] Location: [facility] MED-SURG Taken: 05/26/2017 Received: 05/26/2017 Reported: 05/31/2017 Physicians: John Hare M.D. Specimen(s) Received A: RIGHT KNEE BONE B: EXPLANT LEFT HARDWARE Clinical History Right knee osteoarthritis, left knee patellar instability Final Diagnosis A. KNEE BONE, RIGHT, TOTAL KNEE REPLACEMENT: DEGENERATIVE JOINT DISEASE. B. HARDWARE, LEFT KNEE, EXPLANT: HARDWARE, DESCRIBED (GROSS EXAMINATION ONLY). Electronically Signed Zuleima Miranda M.D. Gross Description A. Received in formalin labeled "right knee bone," is a 12.5 x 10.5 x 3.0 cm aggregate of multiple irregular portions of bone and soft tissue. The tibial plateau measures 7.8 x 4.5 x 1.6 cm. There are multiple areas of eburnation present, measuring up to 1.5 cm in greatest dimension. The remaining articular surfaces are ceron-yellow and diffusely granular. The underlying trabecular bone is yellow and hard. Produce Department Manager sections are submitted in one cassette, following decalcification. B. Received fresh labeled "explanted left knee hardware," are 3 rodrigez metallic and white plastic portions of hardware, consistent with knee hardware. The specimens range from 3.5-7.0 cm in greatest dimension. Also received within the same container is a 5.4 cm in length x 0.1 cm in diameter chou metallic portion of wire. No soft tissue is present. No sections are submitted, gross only. 05/27/201705/27/2017
--- NOTE | 2017-07-26 09:01 | OP ---
DATE OF OPERATION: 05/26/2017 PREOPERATIVE DIAGNOSES: Right knee osteoarthritis, left knee replacement patellar instability. POSTOPERATIVE DIAGNOSES: Right knee osteoarthritis, left knee replacement patellar instability. PROCEDURE: Right total knee arthroplasty, left total knee replacement, revision of tibial component, also revision of patellar component, and lateral release/medial arthrotomy repair and reinforcement. ATTENDING: John Hare MD REPAIR MECHANIC: CELINE Ortega ANESTHESIA: Spinal plus sedation. ESTIMATED BLOOD LOSS: 300 mL COMPLICATIONS: None. SPECIMENS: Resected bone and removed components were sent for pathology analysis. DISPOSTION: The patient was transferred to the PACU in stable condition. IMPLANTS USED: Right knee: Rl Triathlon size 5 femoral component, size 4 tibial component, 32-mm patellar component, 9-mm posterior-stabilized polyethylene component. Left knee: [place] Triathlon TS size 4 tibial component, 16-mm TS polyethylene component. INDICATIONS: This is a 66-year-old female who is a long-term patient of mine, who has bilateral knee osteoarthritis. She underwent a left total knee replacement on November 25, 2016, and did well initially postoperatively. She presented to the office on April 13, 2017, nearly 5 months postop and felt that her patella had dislocated while trying to get out of a restaurant ro. She was seen and examined by Dr. Hare, and the patella was found to be easily subluxable. There was significant swelling at the knee, and it was found that the arthrotomy had ruptured internally, causing the patellar subluxation. These findings were discussed with the patient. We had planned to do a right total knee replacement due to severe right knee osteoarthritis and pain that was not well managed with conservative management and determined that we would perform both a right total knee replacement primary surgery and exploration of the left total knee replacement with repair of the arthrotomy and lateral release if necessary. The risks, benefits, and alternatives to procedure were explained to the patient in great detail, and she elected to proceed with both parts of the procedure. On the day of surgery, the patient was taken to the operating room and placed on the OR table. Spinal anesthesia was administered by the anesthesiologist. The patient was then positioned supine on the table, and all bony prominences were padded. The right knee was then prepped and draped in the usual sterile fashion, and intravenous antibiotics were given for infection prophylaxis. A surgical time-out was then performed with the team, and the patients identity, procedure, side, availability of implants, and the administration of antibiotics were confirmed. With the knee flexed, a midline incision was made and carried down through the subcutaneous fat to the underlying retinaculum of the right knee. A medial parapatellar arthrotomy was performed. This was followed by a subperiosteal dissection of the tissue off the proximal, medial tibia. A portion of fat pad was removed from under the patellar tendon, and a small portion of fat was excised off the distal supracondylar femur. The right knee was then flexed further, and the anterior horn of the lateral meniscus was released from the midline. Next, the anterior and posterior cruciate ligaments were transected. Osteophytes were removed from both the femur and tibia. Grade 4 changes were noted diffusely throughout the right knee. Hohmann retractors were then placed around the distal femur. The starting drill was used to enter the intramedullary canal. The starting point had been chosen by checking the radiographs and anatomy. Proper alignment and intramedullary placement was then confirmed by placing the long narrow marie into the femur. Next, the distal femoral cutting guide was adjusted to 6 degrees of valgus and pinned to the femur. The bone resection was assessed using an felipa-wing. An approximately 8-mm distal cut was then made and the cut pieces measured. Once this was complete, the sizing guide was used to determine which size femoral component should be used. Next, the appropriately sized [employer] Triathlon cutting block was then placed at the correct amount of external rotation, and the felipa wing was used to assure that there would be no notching of the anterior cortex of the femur. Once this was done, Hohmann retractors were used to protect the medial and lateral collateral ligaments, and all appropriate bone cuts were made. Attention was then turned to the tibia. Hohmann retractors were then used to translate the tibia anteriorly and protect the collateral ligaments. The medial and lateral menisci were removed. The extramedullary tibial alignment guide was then placed and adjusted for rotation, varus/valgus, and slope. The height of the cutting block was adjusted to the level of the desired bone resection and then pinned in place. The proximal tibia was then cut with a saw, and the bone was removed and measured. Once this was completed, trial components were placed, and the knee was taken through a full range of motion. Soft tissue balance was assessed in both flexion and extension and found to be appropriate. The knee was stable throughout the full range of motion. The right knee was then put into extension and the patella everted. The synovium around the patella was circumscribed with electrocautery. A caliper was used to measure the patellar thickness, and a saw was then used to resect the patella at the chondro-osseous junction. The cut surface was then sized and drilled for the appropriate patellar button, with care taken to medialize it. A trial patella was then placed, and the knee was again taken through a full range of motion. The knee was found to have both good balance and good patellar tracking. It was tracking centrally with no evidence of subluxation. All of the components were removed except the tibial base plate. The appropriate instrumentation was used to drill and punch the proximal tibia for the keel of the final component. All bony surfaces were then cleaned. The right lower extremity was then elevated and exsanguinated, and the tourniquet was inflated. All bony surfaces were then irrigated with pulsatile lavage and dried. Bone cement was then prepared on the back table, and final components were cemented in place in the usual fashion. Extruded cement was removed. The polyethylene trial was placed, the knee was put into extension, and axial pressure was applied for compression while the cement hardened. The patellar button was similarly cemented into place. Once the cement had hardened, the knee was taken through a full range of motion to assess stability, balance, and patellar tracking. This was found to be optimal, and the trial polyethylene was exchanged for the appropriately sized real implant. The wound was then thoroughly irrigated with normal saline. A 3-minute dilute Betadine lavage was performed according to the HOLLIDAY protocol. Following this, the wound was again thoroughly irrigated with normal saline. No. 2 FiberWire non-absorbable suture was used to close the arthrotomy given her history of contralateral arthrotomy rupture. No. 1 Polysorb and 2-0 Polysorb sutures were used in the subcutaneous tissues. The skin was closed using both 3-0 VLoc 90 barbed suture in a running subcuticular fashion and Dermabond skin adhesive. Once this was completed, a sterile Aquacel dressing and compressive Rico-wrap was applied. Attention was then turned to the other knee. The patient was completely undraped, and we prepped and draped the left knee from scratch so that this field would be fresh. The knee was prepped and draped in the usual sterile fashion. Additional intravenous antibiotics were given for infection prophylaxis. I and my scheduling assistant had scrubbed out of the surgery after the dressing was placed on the first knee, and we re-scrubbed and donned new gowns and gloves prior to draping the second, left knee to ensure a fresh sterile field. New instrumentation was also used to perform the second part of the surgery to minimize infection risk. With the knee flexed, a midline incision was made and carried down through the subcutaneous fat to the underlying retinaculum. This incision incorporated the previous knee replacement incision scar. Once we got through the skin, we found that the previous medial parapatellar arthrotomy repair had failed, and there was visible metal from the implant. In addition, the patella was found to be scarred in a subluxed lateral position and could no longer be easily reduced back to normal central alignment. We then proceeded by completion of the medial parapatellar arthrotomy proximally and distally. This was followed by a subperiosteal dissection off the proximal, medial tibia. A portion of fat pad and scar tissue was removed from under the patellar tendon which was found to be fibrotic and thickened and scarred in a laterally subluxed position. A small portion of fat and scar tissue was excised off the distal supracondylar femur to expose the bone implant interface there. Additional arthrolysis was performed as scar tissue was removed using electrocautery and sharp dissection to re-establish the medial and lateral gutters. We then performed progressive lateral release in order to re-center the patellar component, and it was found that even with a complete lateral release and complete transection of the lateral patellar retinaculum, the patella would still sublux and dislocate laterally when the knee was flexed. We, therefore, elected to revise the patellar component to down size it and move it more medially and revise the tibial component in order to externally rotate it more because it was felt that even if a strong arthrotomy closure and medial plication was performed, there would still be a laterally directed force on the patella which would cause the medial tissues to become attenuated and eventually fail because the patella had been subluxed laterally for so long and tended to fall back into this position. Hohmann retractors were then placed around the distal femur. The femoral component was inspected and found to be well fixed. Its rotation was evaluated with respect to the medial and lateral epicondyles, and it was found to be appropriately externally rotated with respect to the epicondylar axis. It did not appear that the femoral component was contributing to her patellar instability. Therefore, this component was left in place. Attention was then turned to the patella. In order to create more room to work and sublux the patella for adequate exposure of the tibia, we used an oscillating saw to remove the patellar component and associated cement, leaving a flush cut surface behind. We opted to leave the patellar pegs cemented in place in the patella in order to strengthen it and also because our new smaller patella would be positioned more medially and would not utilize the same peg holes. Attention was then turned to the tibia. Hohmann retractors were used to translate the tibia anteriorly and protect the collateral ligaments. Flexible and rigid osteotomes were used to separate the tibial component from the underlying bone, taking care to preserve as much bone stock as possible. The extramedullary tibial alignment guide was then placed and adjusted for rotation, varus/valgus, and slope. The height of the cutting block was adjusted to just below the current cut surface of the tibia, and it was then pinned in place. The proximal tibial cut was then freshened with a saw, taking care to remove as little bone as possible. Once we had achieved a flat surface and all intramedullary cement had been removed using osteotomes and curettes, a trial revision tibial component was placed in exaggerated external rotation with respect to the medial third of the tibial tubercle, and this was found to yield neutral tracking of the patella in concert with our previous lateral release. The knee was then put into extension and the patella everted. The synovium around the patella was circumscribed with electrocautery, and additional scar tissue was removed. A caliper was used to measure the patellar thickness and assure that there would be no risk of fracture. The previously cut surface was then sized for a 29-mm patella which was smaller than the 32 we had just removed, and this was placed in a more medial position. The cut surface was then drilled using the template. Once this was completed, a trial patella was placed, and the knee was again taken through a full range of motion. With the adjustments to the patella position, the lateral release, and the revision of the tibial component to a position of greater external rotation, the knee was found to have both good balance and neutral patellar tracking. All of the components were then removed except the tibial base plate. The appropriate instrumentation was used to drill and punch the proximal tibia for the keel and stem of the final revision tibial component. The left lower extremity was then elevated and exsanguinated and the tourniquet inflated. All bony surfaces of the tibia and patella were then cleaned with pulsatile lavage and dried. Bone cement was then prepared on the back table, and the final components were cemented in place in the usual fashion. Extruded cement was removed. The polyethylene trial was placed, the knee was put into extension, and axial pressure was applied for compression while the cement hardened. The patellar button was similarly cemented into place. Once the cement had hardened, the knee was taken through a full range of motion to assess stability, balance, and patellar tracking. This was found to be optimal, and the trial polyethylene was exchanged for the appropriately sized real implant. The wound was then irrigated with normal saline. A 3-minute dilute Betadine lavage was performed according to the HOLLIDAY protocol. Following this, the wound was again thoroughly irrigated with normal saline via pulsatile lavage. The irrigant did contain 1 g of Ancef per gram of normal saline for a total of 3 L irrigation. No. 2 FiberWire non-absorbable suture was used to close the medial aspect of the arthrotomy with the attenuated tissues overlapped in a [id number] fashion to further tighten the medial retinaculum and discourage lateral subluxation of the patella. The lateral release was left open. The deep subcutaneous tissues were closed with No. 1 Polysorb sutures, and 2-0 Polysorb sutures were used in the superficial subcutaneous tissues. The skin was closed using both 3-0 VLoc 90 barbed suture in a running subcuticular fashion and Dermabond skin adhesive. Once this was completed, a sterile Aquacel dressing and compressive Rico-wrap was applied. The tourniquet was then deflated and the patient was awakened and taken to the PACU in stable condition. Neri [id number]
== END 2017-05-29 12:00 | DRG 470 ==
LOC: FM/S 05:46
PROVIDERS: ADMIT Student in an Organized Health Care Education/Training Program; ATTEND Student in an Organized Health Care Education/Training Program
PROC: 0SUD09C Supplement Left Knee Joint with Liner, Patellar Surface, Open Approach (ICD-10-PCS; 2017-05-26)
PROC: 0SRC0JA Replacement of Right Knee Joint with Synthetic Substitute, Uncemented, Open Approach (ICD-10-PCS; principal; 2017-05-26 09:06)
DX: M17.11 Unilateral primary osteoarthritis, right knee (principal); M23.52 Chronic instability of knee, left knee; I10 Essential (primary) hypertension; E78.5 Hyperlipidemia, unspecified
CPT/HCPCS: 36415; 73560-TC-LT-FY; 73560-TC-RT-FY; 80048; 85027; 86803; 87070; 87075; 87205; 87389; 88300-TC; 88304-TC; 88311-TC; 89051; 90688; 94760; 97116-GP; 97162-GP; G0008; J0131; J1100